=== PATIENT | female | born 1930 | race Two or more races ===

== ENCOUNTER 2016-06-18 20:38 | Inpatient (IN) | payer MEDICARE, OTHER ==
[~2016-06-18] VITALS: Ht 160 cm; Wt 76.5 kg
[~2016-06-18 20:38] MED LIST: AMYL1CAP58 PO; ASPI-991 PO; ATOR10TA PO; DONE10TA44 PO; LACT10SO PO; LEVO50TA PO; LOSA1TAB36 PO; MELO-270 PO; MEMA10TA21 PO; POTA10TA15 PO; QUET25TA PO; SENN8.6T6 PO; SOLI5TAB PO; TRAM50TA2 PO
[2016-06-18 21:11] LABS: BASOPHILS % (AUTO) 0.9 % (0.0-2.0); DIFF TOTAL % 100 %; HEMATOCRIT 39 % (33-45); HEMOGLOBIN 12.8 g/dL (11.5-14.8); LYMPHOCYTES # (AUTO) 1.4 /CMM (0.8-4.8); LYMPHOCYTES % (AUTO) 30.8 % (20.0-44.0); MEAN CORPUSCULAR HEMOGLOBIN 32 PG (26.0-33.0); MEAN CORPUSCULAR HGB CONC 33 g/dl (31.0-36.0); MEAN CORPUSCULAR VOLUME 97 fL (82-100); MONOCYTES # (AUTO) 0.4 /CMM (0.1-1.30); MONOCYTES % (AUTO) 8.4 % (2.0-12.0); NEUTROPHILS # (AUTO) 2.7 /CMM (1.8-8.9); NEUTROPHILS % (AUTO) 58.9 % (43.0-81.0); PLATELET COUNT (AUTO) 211 /CMM (150-450); RED BLOOD CELL COUNT(AUTO) 3.99 MIL/uL (4.0-5.2); WHITE BLOOD COUNT (AUTO) 4.5 K/uL (4.3-11.0)
[2016-06-18 21:20] LABS: POTASSIUM 4.2 mmol/L (3.5-5.1)
[2016-06-18 21:25] LABS: INR 0.94 (0.87-1.13); PROTHROMBIN TIME 9.9 SECS (9.5-12.7)
[2016-06-18 21:26] LABS: CALCIUM, SERUM 8.5 mg/dL (8.5-10.1)
[2016-06-18 21:29] LABS: TROPONIN I 0.267 ng/mL (0.00-0.056)
[2016-06-18 22:24] LABS: KETONES,URINE NEGATIVE (NEGATIVE); LEUKOCYTE ESTERASE ,URINE NEGATIVE (NEGATIVE)
[2016-06-18 22:32] LABS: ADD UA MICROSCOPIC YES
[2016-06-18 22:34] LABS: ADD URINE CULTURE NO; RBC,URINE 0-2 /HPF (0-2)
[2016-06-18] MEDS ORDERED: IV NS 0.9% 1,000 ML IV PRN (22:37)
[2016-06-18 22:40] VITALS: BP 141/92
[2016-06-18 22:50] VITALS: BP 141/92
[2016-06-18] MEDS ORDERED: LORAZEPAM INJ 2 MG/ML VIAL IV PRN (23:00)
[2016-06-18] MEDS ORDERED: MAGNESIUM HYDROXIDE 30 ML UDC PO PRN (23:00)
[2016-06-18] MEDS ORDERED: ONDANSETRON HCL/PF 4 MG/2 ML VIAL IVP PRN (23:00)
[2016-06-18] MEDS ORDERED: MAG HYDROX/AL HYDROX/SIMETH 30 ML UDC PO PRN (23:00)
[2016-06-18] MEDS ORDERED: ACETAMINOPHEN 325 MG TABLET PO PRN (23:00)
[2016-06-18] MEDS ORDERED: IV NS 0.9% 1,000 ML ONE (23:15)
[2016-06-18] MEDS ORDERED: IV SET PRIMARY PUMP SET 1 EA INFUS.SET MC ONE ×2 (23:27→23:33)
[2016-06-19] VITALS: BP 153/92
[2016-06-19 04:00] VITALS: BP 142/76
[2016-06-19 07:29] LABS: BASOPHILS % (AUTO) 0.3 % (0.0-2.0); DIFF TOTAL % 100 %; EOSINOPHILS % (AUTO) 0.5 % (0.0-6.0); HEMATOCRIT 38 % (33-45); HEMOGLOBIN 12.8 g/dL (11.5-14.8); LYMPHOCYTES # (AUTO) 1.5 /CMM (0.8-4.8); MEAN CORPUSCULAR HEMOGLOBIN 33 PG (26.0-33.0); MEAN CORPUSCULAR HGB CONC 34 g/dl (31.0-36.0); MEAN CORPUSCULAR VOLUME 97 fL (82-100); MONOCYTES # (AUTO) 0.4 /CMM (0.1-1.30); MONOCYTES % (AUTO) 6.7 % (2.0-12.0); NEUTROPHILS # (AUTO) 3.8 /CMM (1.8-8.9); NEUTROPHILS % (AUTO) 66.5 % (43.0-81.0); PLATELET COUNT (AUTO) 204 /CMM (150-450); RED BLOOD CELL COUNT(AUTO) 3.91 MIL/uL (4.0-5.2); WHITE BLOOD COUNT (AUTO) 5.7 K/uL (4.3-11.0)
[2016-06-19 08:00] VITALS: BP 157/78
[2016-06-19 08:01] LABS: CALCIUM, SERUM 9.2 mg/dL (8.5-10.1); CREATININE 0.8 mg/dL (0.6-1.3); PHOSPHORUS 2.9 mg/dL (2.5-4.9); POTASSIUM 3.7 mmol/L (3.5-5.1)
[2016-06-19] MEDS: PANTOPRAZOLE 40 MG TABLET.DR PO SCH (08:44)
[2016-06-19] MEDS: ENOXAPARIN SODIUM 40 MG/0.4 ML DISP.SYRIN SQ SCH (08:49)
[2016-06-19] MEDS ORDERED: ASPIRIN 325 MG TABLET PO SCH (09:00)
[2016-06-19] MEDS ORDERED: Z GUARD REMEDY 2 OZ OINT TP PRN (09:30)
[2016-06-19 12:00] VITALS: BP 138/72
[2016-06-19] MEDS: Z GUARD REMEDY 2 OZ OINT TP SCH ×2 (13:57→17:30)
[2016-06-19 21:50] VITALS: BP 160/64
[2016-06-19] MEDS ORDERED: QUETIAPINE FUMARATE 25 MG TABLET PO SCH (22:00)
[2016-06-19] MEDS ORDERED: SENNOSIDES 8.6 MG TABLET PO SCH (22:00)
[2016-06-20 04:52] LABS: CALCIUM, SERUM 8.7 mg/dL (8.5-10.1); CREATININE 0.8 mg/dL (0.6-1.3); PHOSPHORUS 3.3 mg/dL (2.5-4.9); POTASSIUM 3.7 mmol/L (3.5-5.1)
[2016-06-20] MEDS ORDERED: LEVOTHYROXINE SODIUM 50 MCG TABLET PO SCH (07:30)
[2016-06-20 08:00] VITALS: BP 142/81
[2016-06-20 08:42] VITALS: BP 142/81
[2016-06-20] MEDS: PANTOPRAZOLE 40 MG TABLET.DR PO SCH (08:46)
[2016-06-20] MEDS: ENOXAPARIN SODIUM 40 MG/0.4 ML DISP.SYRIN SQ SCH (08:55)
[2016-06-20] MEDS ORDERED: POTASSIUM CHLORIDE 10 MEQ TABLET.SA PO SCH (09:00)
[2016-06-20] MEDS ORDERED: MELOXICAM 7.5 MG TABLET PO SCH (09:00)
[2016-06-20] MEDS ORDERED: TRAMADOL HCL 50 MG TABLET PO SCH (09:00)
[2016-06-20] MEDS ORDERED: ASPIRIN 81 MG TAB.CHEW PO SCH (09:00)
[2016-06-20] MEDS ORDERED: LOSARTAN/HCTZ 50-12.5MG/ 1 EA TABLET PO SCH (09:00)
[2016-06-20] MEDS: Z GUARD REMEDY 2 OZ OINT TP SCH (14:18)
[2016-06-20] MEDS ORDERED: QUETIAPINE FUMARATE 25 MG TABLET PO SCH (15:00)
== END 2016-06-20 16:05 | disposition home health service (06) | DRG 73 ==
LOC: ER 20:40 → TELE 21:54 → MED 06-19 16:21
PROVIDERS: ADMIT Nurse Practitioner Acute Care; ATTEND Nurse Practitioner Acute Care
DX: G90.8 Other disorders of autonomic nervous system (principal); I21.4 Non-ST elevation (NSTEMI) myocardial infarction; F02.80 Dementia in other diseases classified elsewhere, unspecified severity, without behavioral disturbance, psychotic disturbance, mood disturbance, and anxiety; G30.9 Alzheimer's disease, unspecified; E03.9 Hypothyroidism, unspecified; E78.5 Hyperlipidemia, unspecified; Z87.440 Personal history of urinary (tract) infections; I11.9 Hypertensive heart disease without heart failure; F29 Unspecified psychosis not due to a substance or known physiological condition; Z96.652 Presence of left artificial knee joint; Z96.642 Presence of left artificial hip joint
CPT/HCPCS: 36415; 70450-TC; 71010-TC; 76856-TC; 80048-TC; 80061-TC; 81000-TC; 82962-TC; 83735-TC; 84100-TC; 84443-TC; 84484-TC; 85025-TC; 85730-TC; 87081-TC; 97001-TC; A4606; J1650; J7030; Z7610

== ENCOUNTER 2016-07-01 12:38 | Outpatient (CLI) | payer MEDICARE, OTHER ==
[~2016-07-01] VITALS: Ht 148.6 cm; Wt 64.0 kg
[~2016-07-01 12:38] MED LIST changes: -ATOR10TA PO
[2016-07-01 13:16] VITALS: BP_SYST 133; BP_SYST 152; BP_DIAS 75; BP_DIAS 87
== END 2016-07-01 23:59 | disposition home or self-care (01) ==
LOC: CSC 12:38
PROVIDERS: ATTEND Internal Medicine
DX: G30.9 Alzheimer's disease, unspecified (principal); F02.80 Dementia in other diseases classified elsewhere, unspecified severity, without behavioral disturbance, psychotic disturbance, mood disturbance, and anxiety; M81.0 Age-related osteoporosis without current pathological fracture; Z87.310 Personal history of (healed) osteoporosis fracture; E78.5 Hyperlipidemia, unspecified; K59.00 Constipation, unspecified; M13.862 Other specified arthritis, left knee; M13.861 Other specified arthritis, right knee; I95.1 Orthostatic hypotension; Z79.1 Long term (current) use of non-steroidal anti-inflammatories (NSAID); I10 Essential (primary) hypertension; Z82.49 Family history of ischemic heart disease and other diseases of the circulatory system; E03.9 Hypothyroidism, unspecified; Z96.642 Presence of left artificial hip joint; Z96.652 Presence of left artificial knee joint; Z91.81 History of falling; F32.5 Major depressive disorder, single episode, in full remission
CPT/HCPCS: G0463

== ENCOUNTER 2017-12-07 19:19 | Inpatient (IN) | payer MEDICARE, OTHER ==
[~2017-12-07] VITALS: Ht 165.1 cm; Wt 68.0 kg
[~2017-12-07 19:19] MED LIST changes: +ASPI-1152 PO; -ASPI-991 PO; +MELO-105 PO; -MELO-270 PO; +SENN-167 PO; -SENN8.6T6 PO; -SOLI5TAB PO; +SOLI5TAB2 PO
--- NOTE | 2017-12-07 19:19 | NUR ---
"MORE ALTERED THAN USUAL [id number]; FSBS 180G/DL" VSS NO ACUTE DISTRESS AT THIS TIME. PT RESPONDS TO PAIN BUT OTHERWISE CONFUSED D/T HX OF DEMENTIA. WILL CONTINUE TO MONITOR FOR ANY CHANGES DURING THE SHIFT.
--- NOTE | 2017-12-07 19:20 | NUR ---
ER MD MARMOLEJO AT BEDSIDE FOR EVAL
[2017-12-07] MEDS ORDERED: IV NS 0.9% 1,000 ML BAG IV ONE (19:30)
[2017-12-07 19:57] LABS: BASOPHILS % (AUTO) 0.7 % (0.0-2.0); EOSINOPHILS % (AUTO) 0.7 % (0.0-6.0); HEMATOCRIT 42 % (33-45); HEMOGLOBIN 13.9 g/dL (11.5-14.8); LYMPHOCYTES # (AUTO) 1.6 /CMM (0.8-4.8); LYMPHOCYTES % (AUTO) 25.7 % (20.0-44.0); MEAN CORPUSCULAR HEMOGLOBIN 32 PG (26.0-33.0); MEAN CORPUSCULAR HGB CONC 33 g/dl (31.0-36.0); MEAN CORPUSCULAR VOLUME 96 fL (82-100); MONOCYTES # (AUTO) 0.4 /CMM (0.1-1.30); MONOCYTES % (AUTO) 6.9 % (2.0-12.0); NEUTROPHILS # (AUTO) 4.3 /CMM (1.8-8.9); PLATELET COUNT (AUTO) 219 /CMM (150-450); RDW COEFFICIENT OF VARIATION 13.6 (11.5-15.0); RED BLOOD CELL COUNT(AUTO) 4.41 MIL/uL (4.0-5.2); WHITE BLOOD COUNT (AUTO) 6.3 K/uL (4.3-11.0)
[2017-12-07 20:11] LABS: CALCIUM, SERUM 8.7 mg/dL (8.5-10.1); CARBON DIOXIDE 23 mmol/L (21-32); CHLORIDE 107 mmol/L (98-107); CREATININE 1.2 mg/dL (0.6-1.3); GLUCOSE 122 mg/dL (74-106); POTASSIUM 4.2 mmol/L (3.5-5.1); SODIUM SERUM 138 mmol/L (136-145); UREA NITROGEN, BLOOD 14 mg/dL (7-18)
[2017-12-07 20:14] LABS: INR 0.89 (0.85-1.15)
[2017-12-07 20:16] LABS: ALANINE AMINOTRANSFERASE 18 U/L (12-78); ALBUMIN 3.3 g/dL (3.4-5.0); ALKALINE PHOSPHATASE 99 U/L (46-116); ASPARTATE AMINOTRANSFERASE 16 U/L (15-37); BILIRUBIN,DIRECT 0.1 mg/dL (0.0-0.2); BILIRUBIN,TOTAL 0.3 mg/dL (0.2-1.0); TOTAL PROTEIN, SERUM 6.8 g/dL (6.4-8.2)
[2017-12-07 20:19] LABS: TROPONIN I 0.059 ng/mL (0.00-0.056)
--- NOTE | 2017-12-07 20:42 | NUR ---
PT OFF TO CT
--- NOTE | 2017-12-07 20:46 | NUR ---
REPORT GIVEN TO CAN
[2017-12-07] MEDS ORDERED: ASPIRIN 325 MG TABLET PO ONE (21:00)
[2017-12-07] MEDS ORDERED: ASPIRIN 325 MG TABLET ONE (21:02)
[2017-12-07 22:00] VITALS: BP 132/74
--- NOTE | 2017-12-07 22:00 | NUR ---
HOME ORGANIZER ADMISSION NOTES, RECEIVED PATIENT VIA STRETCHER ACCOMPANIED BY 2STAFF, IN STABLE CONDITION AT THIS TIME, BREATHING EVEN AND UNLABORED, NO S/S OF SOB/ACUTE DISTRESS NOTED AT THIS TIME, SR IN THE TELE MONITOR HE IN THE 60'S. UNDER THE MEDICAL CARE OF NATE DICK NP. ADMITTING DX SYNCOPE, HE WANT PATIENT IN TELE ACUITY, H/O ADVANCE DEMENTIA, HYPOTHYROIDISM, HTN, GERD, BIPOLAR DO, DEPRESSION, ANXIETY, H/O LEFT KNEE AND LEFT HIP REPLACEMENT, CHRONIC CONSTIPATION. BED BATH PROVIDED UPON ADMISSION, AFEBRILE AT THIS TIME, NOTED WITH SACRAL REDNESS AND PERINEAL AND BILATERAL INNER THIGHS REDNESS TOO, LEFT FOOT REDNESS, NO IV UPON ADMISSION, PATIENT PULLED OUT INT HE WAY FROM ER TO [place] DEPARTMENT, PATIENT NOTED AGITATED AND COMBATIVE, REDIRECTION OF BEHAVIOR PROVIDED, FAMILY UPON ADMISSION AT BEDSIDE, WILL CONTINUE TO MONITOR, BED LOCKED AND IN LOW POSITION, BED ALARM ON, CLOSELY. VS 132/74, 94%RA, HR 86, 97.9, 0/10.
[2017-12-07] MEDS ORDERED: ENAL5TAB77 PO (22:49)
[2017-12-07] MEDS ORDERED: HYDROCODONE/APAP 5/325MG 1 EACH TABLET PO PRN (23:00)
[2017-12-07] MEDS ORDERED: ONDANSETRON HCL/PF 4 MG/2 ML VIAL IVP PRN (23:00)
[2017-12-07] MEDS ORDERED: MAGNESIUM HYDROXIDE 30 ML UDC PO PRN (23:00)
[2017-12-07] MEDS ORDERED: MAG HYDROX/AL HYDROX/SIMETH 30 ML UDC PO PRN (23:00)
[2017-12-07] MEDS ORDERED: ACETAMINOPHEN 325 MG TABLET PO PRN (23:00)
[2017-12-07] MEDS ORDERED: Z GUARD REMEDY 2 OZ OINT TP PRN (23:00)
[2017-12-08] VITALS (7 sets, daily range): BP systolic 134–153; BP diastolic 61–81
--- NOTE | 2017-12-08 06:23 | NUR ---
CLEANER AND DYER CLOSING NOTES, PATIENT SLEEPING IN BED AT THIS TIME, BUT EASILY AROUSABLE TO VERBAL AND TACTILE STIMULI , BREATHING EVEN AND UNLABORED, NO S/S OF SOB/ACUTE DISTRESS NOTED AT THIS TIME, NSR IN THE TELE MONITOR HE IN THE 60'S. IV IN LEFT HAND INTACT AND PATENT, BED LOCKED AND IN LOWEST POSITION, BED ALARM ON, CALL LIGHT W/I REACH, NO SIGNIFICANT CHANGE IN CONDITION DURING THE NIGH, DRY AND CLEAN AND WELL REPOSITIONED, WILL CONTINUE ENDORSE CONTINUITY OF CARE TO ONCOMING NURSE.
[2017-12-08 06:27] LABS: BASOPHILS % (AUTO) 0.2 % (0.0-2.0); EOSINOPHILS % (AUTO) 0.9 % (0.0-6.0); HEMATOCRIT 39 % (33-45); LYMPHOCYTES # (AUTO) 1.6 /CMM (0.8-4.8); LYMPHOCYTES % (AUTO) 22.5 % (20.0-44.0); MEAN CORPUSCULAR HEMOGLOBIN 33 PG (26.0-33.0); MEAN CORPUSCULAR HGB CONC 33 g/dl (31.0-36.0); MEAN CORPUSCULAR VOLUME 100 fL (82-100); MONOCYTES # (AUTO) 0.5 /CMM (0.1-1.30); MONOCYTES % (AUTO) 7.4 % (2.0-12.0); PLATELET COUNT (AUTO) 191 /CMM (150-450); RDW COEFFICIENT OF VARIATION 14.4 (11.5-15.0); RED BLOOD CELL COUNT(AUTO) 3.96 MIL/uL (4.0-5.2); WHITE BLOOD COUNT (AUTO) 7.2 K/uL (4.3-11.0)
[2017-12-08 06:45] LABS: CHOLESTEROL 252 mg/dL (<200); HDL CHOLESTEROL 82 mg/dL (40-60); LDL 147 mg/dL (0-99); THYROID STIMULATING HORMONE 2.511 uIU/mL (0.358-3.74); TRIGLYCERIDES 69 mg/dL (30-150)
[2017-12-08 06:53] LABS: CARBON DIOXIDE 27 mmol/L (21-32); CHLORIDE 108 mmol/L (98-107); GLUCOSE 95 mg/dL (74-106); PHOSPHORUS 3.3 mg/dL (2.5-4.9); POTASSIUM 4.3 mmol/L (3.5-5.1); SODIUM SERUM 144 mmol/L (136-145); UREA NITROGEN, BLOOD 11 mg/dL (7-18)
[2017-12-08 06:58] LABS: CALCIUM, SERUM 8.6 mg/dL (8.5-10.1)
--- NOTE | 2017-12-08 07:40 | NUR ---
RN NOTE RECEIVED PATIENT AWAKE ALERT AND ORIENTED X1-2, PATIENT IS ABLE TO UNDERSTAND IN HER [place] LANGUAGE. BREATHING EVEN AND UNLABORED WITH NO DISTRESS NOTED. ON CONTINUOUS O2 OF 2L SATURATING WELL. ON TIRE CARE MANAGER SINUS ARLEN HR OF 55. BILATERAL RESTRAINTS ON PATIENT WILL BE REMOVED Q2H TO RECHECK SKIN AND CIRCULATION. LEFT FA IV SITE INTACT AND PATENT. ALL SAFETY MEASURES DONE. BED LOW AND LOCKED POSITION. WILL CONTINUE TO MONITOR.
--- NOTE | 2017-12-08 11:15 | NUR ---
WOUND CARE CONSULT: PATIENT SEEN AND SKIN INTEGRITY ASSESSMENT DONE. PLEASE SEE PCS FOR TODAY. RECOMMEND CONTINUE USE OF Z GUARD TO SKIN FOLD, ABDOMINAL AREA, PERINEAL AND BUTTOCKS. JAISON OF 15, CONTINUE ALL PRESSURE ULCER PREVENTION MEASURES PER PLAN OF CARE. WILL SEE PRN. Addendum: 12/08/17 at 1119 by RYLIE HERNANDEZ RN Amended: Links added.
--- NOTE | 2017-12-08 18:50 | NUR ---
RN NOTE CAREGIVER AT BEDSIDE WITH PATIENT.
--- NOTE | 2017-12-08 19:20 | NUR ---
RN NOTE PATIENT REMAINED STABLE THROUGHOUT SHIFT WITH NO ACUTE CHANGES OR DISTRESS NOTED. WILL ENDORSE TO NEXT SHIFT TO CONTINUE CONTINUITY OF CARE.
[2017-12-08 19:43] LABS: BILIRUBIN,URINE NEGATIVE (NEGATIVE); BLOOD, URINE TRACE-INTA Ery/uL (NEGATIVE); COLOR,URINE YELLOW (YELLOW); KETONES,URINE NEGATIVE (NEGATIVE); LEUKOCYTE ESTERASE ,URINE 3+ (NEGATIVE); NITRITE, URINE POSITIVE (NEGATIVE); PH,URINE 6.5 (5.0-8.0); PROTEIN,URINE NEGATIVE (NEGATIVE); UGLUCOSE NEGATIVE (NEGATIVE); UROBILINOGEN,URINE 0.2 EU/dL (0.2)
--- NOTE | 2017-12-08 19:51 | NUR ---
Patient speaks [place] Citizen only.Spoke with son Jan who is currently out of the country. Son stated, patient lives at home with 24hr caregiver and SS. She is totally dependent with adl's, non ambulatory.She has a wheelchair for mobility, currently on service with [facility] [phone]. Current plan is to dc patient back home. Caregiver will provide ride. Addendum: 12/08/17 at 1950 by KAYODE BEE RN Amended: Links added.
[2017-12-08 20:36] LABS: APPEARANCE,URINE SLIGHTLY CLOUDY (CLEAR)
[2017-12-08 20:42] LABS: BACTERIA,URINE Many /HPF (None Seen); RBC,URINE 0-2 /HPF (0-2); SQUAMOUS EPITHELIAL CELL,UR Few /HPF (None Seen); WBC,URINE 25-30 /HPF (0-3)
[2017-12-08] MEDS: SENNOSIDES 8.6 MG TABLET PO SCH (22:33)
[2017-12-09] VITALS: BP 168/68
--- NOTE | 2017-12-09 03:15 | NUR ---
0315 RESTRAINTS RENEWAL ORDER OBTAINED FROM DEVAN AGUIAR. ORDER NOTED AND CARRIED OUT.
[2017-12-09 04:00] VITALS: BP_SYST 123; BP_SYST 166; BP_DIAS 52; BP_DIAS 87
--- NOTE | 2017-12-09 07:40 | NUR ---
RN NOTE RECEIVED PATIENT AWAKE ALERT AND ORIENTED X1-2, PATIENT IS ABLE TO UNDERSTAND IN HER [place] LANGUAGE (VINCENTIAN) WITH EPISODES OF CONFUSION. BREATHING EVEN AND UNLABORED WITH NO DISTRESS NOTED. ON CONTINUOUS O2 OF 2L SATURATING WELL. ON DIRECTOR OF PURCHASING SINUS RHYTHM HR OF 86. BILATERAL RESTRAINTS ON PATIENT WILL BE REMOVED Q2H TO RECHECK SKIN AND CIRCULATION. LEFT FA IV SITE INTACT AND PATENT. ALL SAFETY MEASURES DONE. BED LOW AND LOCKED POSITION. WILL CONTINUE TO MONITOR.
[2017-12-09 08:00] VITALS: BP 151/88
[2017-12-09 16:00] VITALS: BP_SYST 155; BP_SYST 158; BP_DIAS 70; BP_DIAS 73
--- NOTE | 2017-12-09 19:01 | NUR ---
RN NOTE PATIENT REMAINED STABLE THROUGHOUT SHIFT WITH NO ACUTE CHANGES OR DISTRESS NOTED. WILL ENDORSE TO NEXT SHIFT TO CONTINUE TO MONITOR FOR CONTINUITY OF CARE.
[2017-12-09 20:00] VITALS: BP 152/81
[2017-12-09] MEDS: SENNOSIDES 8.6 MG TABLET PO SCH (21:02)
[2017-12-10 04:00] VITALS: BP 149/87
--- NOTE | 2017-12-10 04:30 | NUR ---
RN NOTE NOTIFIED COSME WHYTE NP THAT MED RECON WAS NOT REVIEWED, AWAITING FOR COSME WHYTE NP TO FOLLOW UP ON MED RECON
[2017-12-10 06:25] LABS: BASOPHILS % (AUTO) 0.3 % (0.0-2.0); EOSINOPHILS % (AUTO) 0.8 % (0.0-6.0); HEMATOCRIT 40 % (33-45); HEMOGLOBIN 13.3 g/dL (11.5-14.8); LYMPHOCYTES # (AUTO) 1.4 /CMM (0.8-4.8); LYMPHOCYTES % (AUTO) 22.2 % (20.0-44.0); MEAN CORPUSCULAR HEMOGLOBIN 33 PG (26.0-33.0); MEAN CORPUSCULAR HGB CONC 33 g/dl (31.0-36.0); MEAN CORPUSCULAR VOLUME 99 fL (82-100); MONOCYTES # (AUTO) 0.5 /CMM (0.1-1.30); MONOCYTES % (AUTO) 7.8 % (2.0-12.0); NEUTROPHILS # (AUTO) 4.5 /CMM (1.8-8.9); NEUTROPHILS % (AUTO) 68.9 % (43.0-81.0); PLATELET COUNT (AUTO) 201 /CMM (150-450); RED BLOOD CELL COUNT(AUTO) 4.06 MIL/uL (4.0-5.2); WHITE BLOOD COUNT (AUTO) 6.5 K/uL (4.3-11.0)
[2017-12-10 06:37] VITALS: BP 149/87
--- NOTE | 2017-12-10 06:39 | NUR ---
RN NOTE PATIENT RESTED WELL AT NIGHT, NO PAIN OR DISCOMFORT NOTED, ALL SAFETY MEASURES TAKEN, PATIENT IS STABLE, WILL ENDORSE TO AM SHIFT FOR CONTINUATION OF CARE
[2017-12-10 07:05] LABS: CALCIUM, SERUM 8.8 mg/dL (8.5-10.1); CARBON DIOXIDE 25 mmol/L (21-32); CHLORIDE 106 mmol/L (98-107); CREATININE 0.9 mg/dL (0.6-1.3); GLUCOSE 93 mg/dL (74-106); POTASSIUM 3.7 mmol/L (3.5-5.1); SODIUM SERUM 142 mmol/L (136-145); UREA NITROGEN, BLOOD 10 mg/dL (7-18)
--- NOTE | 2017-12-10 07:40 | NUR ---
RN NOTE RECEIVED PATIENT AWAKE ALERT AND ORIENTED X1, PATIENT IS ABLE TO UNDERSTAND IN HER [place] LANGUAGE ([place]IAN) WITH EPISODES OF CONFUSION. BREATHING EVEN AND UNLABORED WITH NO DISTRESS NOTED. BILATERAL RESTRAINTS ON PATIENT WILL BE REMOVED Q2H TO RECHECK SKIN AND CIRCULATION. LEFT FA IV SITE INTACT AND PATENT. ALL SAFETY MEASURES DONE. BED LOW AND LOCKED POSITION. WILL CONTINUE TO MONITOR.
[2017-12-10 08:00] VITALS: BP 148/78
[2017-12-10] MEDS ORDERED: LOSA50TA21 PO (13:08)
[2017-12-10] MEDS ORDERED: LEVO500T75 PO (13:12)
[2017-12-10 16:01] VITALS: BP 144/70
--- NOTE | 2017-12-10 17:20 | NUR ---
RN NOTE 87 YEAR OLD FEMALE DISCHARGED TO HOME IN STABLE CONDITION. COMPLIANT WITH MEDICATIONS, COOPERATIVE WITH TREATMENT PLANS. MEDICAL TREATMENT PLANS DEFERRED FOR CONTINUAL MONITORING, EDUCATED CAREGIVER AND SON AGUILAR ABOUT AFTER CARE PLAN AND COPIES PROVIDED. RETURNED PERSONAL BELONGINGS TO PATIENT. MEDICATIONS RECONCILED. PATIENT UNABLE TO SIGN DISCHARGE PAPERWORK BUT WAS ABLE TO GET A SECONDARY RN. WOUND PICTURES TAKEN AND DOCUMENTED IN CHART. PATIENT LEFT THE UNIT AT 1720 VIA AMBULANCE.
== END 2017-12-10 17:30 | disposition home health service (06) | DRG 73 ==
LOC: ER 19:23 → TELE1 20:32 → MEDSG1 12-09 10:02
PROVIDERS: ADMIT Nurse Practitioner Acute Care; ATTEND Nurse Practitioner Acute Care
DX: G90.8 Other disorders of autonomic nervous system (principal); I21.A1 Myocardial infarction type 2; G93.40 Encephalopathy, unspecified; E44.1 Mild protein-calorie malnutrition; N39.0 Urinary tract infection, site not specified; E03.9 Hypothyroidism, unspecified; E78.5 Hyperlipidemia, unspecified; G30.9 Alzheimer's disease, unspecified; F02.80 Dementia in other diseases classified elsewhere, unspecified severity, without behavioral disturbance, psychotic disturbance, mood disturbance, and anxiety; I25.10 Atherosclerotic heart disease of native coronary artery without angina pectoris; K21.9 Gastro-esophageal reflux disease without esophagitis; Z96.652 Presence of left artificial knee joint; Z96.642 Presence of left artificial hip joint; J44.9 Chronic obstructive pulmonary disease, unspecified; K59.09 Other constipation; E88.09 Other disorders of plasma-protein metabolism, not elsewhere classified; Z68.25 Body mass index [BMI] 25.0-25.9, adult; E86.0 Dehydration; B96.1 Klebsiella pneumoniae [K. pneumoniae] as the cause of diseases classified elsewhere; I10 Essential (primary) hypertension
CPT/HCPCS: 36415; 70450-TC; 71045-TC; 80048-TC; 80061-TC; 80076-TC; 81000-TC; 83605-TC; 83735-TC; 84100-TC; 84443-TC; 84484-TC; 85025-TC; 85730-TC; 87040-TC; 87081-TC; 87086-TC; 87186-TC; A4606; J7030; Z7610

== ENCOUNTER 2021-12-12 00:18 | Inpatient (IN) | payer MEDICARE, OTHER ==
[~2021-12-12] VITALS: Ht 165.1 cm; Wt 79.4 kg
[~2021-12-12 00:18] MED LIST changes: -ASPI-1152 PO; +ASPI-1420 PO; +ENAL5TAB77 PO; -LACT10SO PO; +LACT10SO3 PO; +LEVO500T23 PO; -LOSA1TAB36 PO; +LOSA50TA39 PO; -MEMA10TA21 PO; +MEMA10TA56 PO; -SENN-167 PO; +SENN-261 PO
[2021-12-12] MEDS ORDERED: VANCOMYCIN 1 GM VIAL ONE (00:27)
[2021-12-12] MEDS ORDERED: PIPERACILLIN /TAZOBACTAM 3.375 G in IV D5W 50 ML IV ONE (00:30)
[2021-12-12] MEDS ORDERED: VANCOMYCIN 1 GM in IV D5W 250 ML IV ONE (00:30)
[2021-12-12] MEDS ORDERED: FUROSEMIDE 20 MG/2 ML VIAL IV ONE (00:30)
[2021-12-12] MEDS ORDERED: PIPERACILLIN /TAZOBACTAM 3.375 G VIAL IV ONE (00:33)
[2021-12-12] MEDS ORDERED: FUROSEMIDE 20 MG/2 ML VIAL ONE (00:33)
[2021-12-12] MEDS ORDERED: ACETAMINOPHEN 650 MG/SUPP.RECT RC ONE ×2 (00:41→01:00)
--- NOTE | 2021-12-12 00:42 | NUR ---
TO ER BED 8. [id number] FROM HOME FOR LOW O2 SAT 77% ON 3LPM. 92% ON 15LPM NON REBREATHER. PT AAOX0. BREATHING TACHYPNEIC UPON ARRIVAL. CONNECTED TO MONITOR. MD AND RT AT BEDSIDE.
[2021-12-12 00:45] LABS: BASOPHILS % (AUTO) 0.3 % (0.0-2.0); EOSINOPHILS % (AUTO) 0.4 % (0.0-6.0); HEMATOCRIT 34 % (33-45); HEMOGLOBIN 11.4 g/dL (11.5-14.8); LYMPHOCYTES % (AUTO) 21.7 % (20.0-44.0); MEAN CORPUSCULAR HGB CONC 34 g/dl (31.0-36.0); MEAN CORPUSCULAR VOLUME 95 fL (82-100); MONOCYTES # (AUTO) 0.5 K/uL (0.1-1.30); MONOCYTES % (AUTO) 9.8 % (2.0-12.0); NEUTROPHILS # (AUTO) 3.2 K/uL (1.8-8.9); NEUTROPHILS % (AUTO) 67.8 % (43.0-81.0); PLATELET COUNT (AUTO) 129 K/uL (150-450); RED BLOOD CELL COUNT(AUTO) 3.58 MIL/uL (4.0-5.2); WHITE BLOOD COUNT (AUTO) 4.8 K/uL (4.3-11.0)
--- NOTE | 2021-12-12 00:46 | NUR ---
URINE COLLECTED AND SENT TO LAB
--- NOTE | 2021-12-12 00:46 | NUR ---
BLOOD AND CULTURES OBTAINED AND SENT TO LAB
--- NOTE | 2021-12-12 00:51 | NUR ---
EMT AT BEDSIDE FOR EKG
--- NOTE | 2021-12-12 00:51 | NUR ---
RT AT BEDSIDE
--- NOTE | 2021-12-12 00:52 | NUR ---
COVID SWAB DONE AND SENT TO LAB
[2021-12-12 00:55] LABS: CALCIUM, SERUM 7.6 mg/dL (8.5-10.1); CARBON DIOXIDE 28 mmol/L (21-32); CHLORIDE 100 mmol/L (98-107); CREATININE 1.3 mg/dL (0.6-1.3); GLUCOSE 153 mg/dL (74-106); POTASSIUM 4.3 mmol/L (3.5-5.1); SODIUM SERUM 133 mmol/L (136-145); UREA NITROGEN, BLOOD 22 mg/dL (7-18)
--- NOTE | 2021-12-12 00:56 | NUR ---
STACI/IGOR (SON) [phone]
--- NOTE | 2021-12-12 00:57 | NUR ---
LARGE BOWEL MOVEMENT, CLEANED AND DRYED.
--- NOTE | 2021-12-12 00:57 | NUR ---
RT NOTE LATE ENTRY Pt rec'd on NRB mask via FD. Pt diaphoretic, Tachypneic, and showed abdominal breathing. pt placed on bipap per MD orders @ 0040 on noted settings. Abg taken at 0057 per md orders. Alarms are set and audbile. Ambu bag at bedside. Bipap plugged into red outlet. Addendum: 12/12/21 at 0137 by JUVENAL CAN RT Amended: Links added.
--- NOTE | 2021-12-12 01:06 | NUR ---
trop 68
[2021-12-12 01:09] LABS: ALANINE AMINOTRANSFERASE 22 U/L (12-78); ALBUMIN 2.8 g/dL (3.4-5.0); ALKALINE PHOSPHATASE 111 U/L (46-116); ASPARTATE AMINOTRANSFERASE 22 U/L (15-37); BILIRUBIN,DIRECT 0.1 mg/dL (0.0-0.2); BILIRUBIN,TOTAL 0.2 mg/dL (0.2-1.0); TOTAL PROTEIN, SERUM 6.6 g/dL (6.4-8.2)
[2021-12-12 01:17] LABS: BILIRUBIN,URINE NEGATIVE (NEGATIVE); COLOR,URINE YELLOW (YELLOW); LEUKOCYTE ESTERASE ,URINE MODERATE (NEGATIVE); NITRITE, URINE POSITIVE (NEGATIVE); PROTEIN,URINE 30 mg/dl (NEGATIVE); UGLUCOSE NEGATIVE (NEGATIVE); UROBILINOGEN,URINE 0.2 EU/dL (0.2)
[2021-12-12 01:27] LABS: ABG PCO2 36.9 mmHg (35.0-45.0); ABG PH 7.369 (7.350-7.450); COHb 0.3 % (0.5-1.5); MetHb 0.5 % (0.0-1.5); O2Hb 98.2 % (94.0-97.0); SITE, ABG Right Radial; VENT MODE, BG Bipap 15/5 80% RR 16
--- NOTE | 2021-12-12 01:47 | NUR ---
RT NOTE pt taken off bipap and placed on NRB 15LPM per MD orders Addendum: 12/12/21 at 0148 by JUVENAL CAN RT Amended: Links added.
[2021-12-12 02:16] LABS: BACTERIA,URINE Many /HPF (None Seen); SQUAMOUS EPITHELIAL CELL,UR Few /HPF (None Seen)
--- NOTE | 2021-12-12 02:40 | NUR ---
ON PHONE WITH SON
[2021-12-12] MEDS ORDERED: ONDANSETRON HCL/PF 4 MG/2 ML VIAL IVP PRN (03:30)
[2021-12-12] MEDS ORDERED: Z GUARD REMEDY 4 OZ OINT TP PRN (03:30)
[2021-12-12] MEDS ORDERED: MORPHINE SULFATE INJ 2 MG/ML DISP.SYRIN IV PRN (03:30)
[2021-12-12] MEDS ORDERED: ALBUTEROL FS 2.5 MG/0.5 ML VIAL.NEB NEB PRN (03:30)
[2021-12-12] MEDS ORDERED: ACETAMINOPHEN 325 MG TABLET PO PRN (03:30)
--- NOTE | 2021-12-12 04:05 | NUR ---
REPORT GIVEN TO MERYL ALONSO FOR ANITA
--- NOTE | 2021-12-12 06:01 | NUR ---
PATIENT BEING TRANSFFERED TO 104
--- NOTE | 2021-12-12 06:05 | NUR ---
BLOW MACHINE TENDER STARCH SPRAYING NOTE PT ARRIVED FROM ER VIA GURNEY. ALERT AWAKE X 0, SOB NOTED. PT ON 15L O2 VIA NRM O2 SAT 100%. ON TELE SR HR 67. F/C INTACT AND PATENT DRAINING YELLOWISH COLOR. SL IN RAC AND LT HAND INTACT AND PATENT. PT IS COVID POSITIVE, ISOLATION PRECAUTIONS TAKEN. WILL ENDORSE TO DAY SHIFT NURSE TO FOLLOW UP WITH ADMISSION PROCESS.
[2021-12-12 06:43] VITALS: BP 113/83
[2021-12-12 08:00] VITALS: BP 132/67
[2021-12-12] MEDS ORDERED: APIX5TAB PO (08:38)
[2021-12-12] MEDS ORDERED: BUSP5TAB3 PO (08:38)
[2021-12-12] MEDS ORDERED: LOSA25TA27 PO (08:38)
[2021-12-12] MEDS ORDERED: METO25TA20 PO (08:38)
[2021-12-12] MEDS ORDERED: FURO20TA4 PO (08:38)
[2021-12-12] MEDS ORDERED: LEVE500T20 PO (08:38)
[2021-12-12] MEDS ORDERED: ATOR10TA PO (08:38)
[2021-12-12] MEDS: DEXAMETHASONE SOD PHOSPHATE 10 MG/ML VIAL IV SCH (08:41)
[2021-12-12] MEDS: ENOXAPARIN SODIUM 80 MG/0.8 ML DISP.SYRIN SQ SCH (08:42)
[2021-12-12] MEDS: CEFTRIAXONE 1 G in IV D5W 50 ML IV SCH (08:42)
[2021-12-12] MEDS ORDERED: HEPARIN SODIUM, PORCINE 5000 UNITS/1 ML VIAL SQ SCH (09:00)
[2021-12-12 12:00] VITALS: BP 146/98
--- NOTE | 2021-12-12 14:57 | NUR ---
[place]/RN PT ARLEN HR 45-48. DO ESSENCE NOTIFIED. STAT EKG ORDERED.
[2021-12-12 16:00] VITALS: BP 139/70
--- NOTE | 2021-12-12 19:10 | NUR ---
RN NOTES RECEIVED REPORT FROM MORNING RN. PATIENT IN BED A/O X0. WITH OXYGEN INHALATION VIA REGULAR MASK AT 8LPM SATING 98%. NO SOB NO DISTRESS NOTED. ON TELE MONITOR WITH SINUS ARLEN.WITH IV ACCESS AT L HAND # 18, R AC #20 PATENT FLUSHES WELL. ALL SAFETY MEASURES IN PLACE AT ALL TIMES. HOB ELEVATED. CALL LIGHT WITHIN REACH. BED ON LOWEST POSITION AND LOCKED. ISOLATION PRECAUTION OBSERVED AT ALL TIMES. WILL CLOSELY MO NITOR THE PATIENT
--- NOTE | 2021-12-12 19:12 | NUR ---
[place]/RN STILL NO ORDER FROM DO LOWRY THROUGHOUT THE DAY. DO LOWRY TEXTED X2 AND CALLED ONCE, REMINDED OF NEW ADMITTED PT WITH NO ORDER FOR MEDICATION OR FLUID. ONLY DR. BOWMAN'S ORDER AVAILABLE AT THIS TIME.
[2021-12-12 20:00] VITALS: BP 127/72
[2021-12-12] MEDS: IPRATROPIUM/ALBUTEROL INHALER IH SCH ×2 (20:08→20:09)
[2021-12-12] MEDS ORDERED: DEXTROSE 50%-WATER 50 ML DISP.SYRIN IV PRN (20:30)
[2021-12-13] VITALS: BP 148/71
[2021-12-13] MEDS: BLOOD SUGAR DIAGNOSTIC 1 EACH STRIP IN SCH ×5 (00:07→23:18)
[2021-12-13] MEDS: IPRATROPIUM/ALBUTEROL INHALER IH SCH ×3 (03:18→15:29)
[2021-12-13 04:00] VITALS: BP 150/71
[2021-12-13 05:17] LABS: ABG BASE EXCESS -1.6 mmol/L; ABG OXYGEN SATURATION 96.7 % (92.0-98.5); ABG PCO2 38.8 mmHg (35.0-45.0); ABG PH 7.391 (7.350-7.450); ABG PO2 96.5 mmHg (75.0-100.0); AaDO2 230.8 mmHg; COHb 0.2 % (0.5-1.5); MetHb 0.3 % (0.0-1.5); O2Hb 96.2 % (94.0-97.0); SITE, ABG Right Radial; VENT MODE, BG SM
--- NOTE | 2021-12-13 05:18 | NUR ---
ABG DONE RN NOTIFIED.
--- NOTE | 2021-12-13 06:00 | NUR ---
RN NOTES ABG RELAYED TO DR COSME WITH NO NEW ORDER AT THIS TIME.
--- NOTE | 2021-12-13 06:41 | NUR ---
RN NOTES PATIENT REMAINS STABLE NO SIGNIFICANT CHANGES IN HEALTH CONDITION. STILL ON SIMPLE MASK AT 8LPM TOLERATING WELL SATING 96%. IV ACCESS INTACT FLUSHES WELL. ALL NEEDS ATTENDED. ISOLATION PRECAUTION RENDERED AT ALL TIMES. ALL SAFETY MEASURES IN PLACE AT ALL TIMES. HOB ELEVATED. CALL LIGHT WITHIN REACH. WILL ENDORSED TO MORNING SHIFT FOR ANITA
[2021-12-13 07:25] LABS: HEMATOCRIT 39 % (33-45); LYMPHOCYTES # (AUTO) 0.7 K/uL (0.8-4.8); LYMPHOCYTES % (AUTO) 6.1 % (20.0-44.0); MEAN CORPUSCULAR HGB CONC 33 g/dl (31.0-36.0); MEAN CORPUSCULAR VOLUME 94 fL (82-100); MONOCYTES # (AUTO) 0.3 K/uL (0.1-1.30); MONOCYTES % (AUTO) 2.4 % (2.0-12.0); NEUTROPHILS % (AUTO) 91.5 % (43.0-81.0); PLATELET COUNT (AUTO) 153 K/uL (150-450); RED BLOOD CELL COUNT(AUTO) 4.13 MIL/uL (4.0-5.2); WHITE BLOOD COUNT (AUTO) 10.9 K/uL (4.3-11.0)
--- NOTE | 2021-12-13 07:29 | NUR ---
RN NOTES PT RECEIVED ASLEEP. EASILY AROUSABLE. PATIENT IN BED A/O X0. WITH OXYGEN VIA NC AT 8LPM SATING 96%. NO SOB NO DISTRESS NOTED AT THIS TIME. SINUS ARLEN ON TELE MONITOR. WITH IV ACCESS AT L HAND #18, R AC #20, PATENT AND FLUSHING WELL. ALL SAFETY MEASURES IN PLACE. HOB ELEVATED. CALL LIGHT WITHIN REACH. BED ON LOWEST POSITION AND LOCKED. ISOLATION PRECAUTION OBSERVED AT ALL TIMES. WILL CONTINUE PLAN OF CARE.
[2021-12-13 08:00] VITALS: BP 120/73
[2021-12-13 08:12] LABS: BILIRUBIN,TOTAL 0.3 mg/dL (0.2-1.0); CREATININE 1.1 mg/dL (0.6-1.3); MAGNESIUM 2.4 mg/dL (1.8-2.4); PHOSPHORUS 3.5 mg/dL (2.5-4.9); POTASSIUM 4.5 mmol/L (3.5-5.1); TOTAL PROTEIN, SERUM 7.6 g/dL (6.4-8.2)
[2021-12-13] MEDS: ENOXAPARIN SODIUM 80 MG/0.8 ML DISP.SYRIN SQ SCH (08:32)
[2021-12-13] MEDS: DEXAMETHASONE SOD PHOSPHATE 10 MG/ML VIAL IV SCH (08:34)
[2021-12-13] MEDS: CEFTRIAXONE 1 G in IV D5W 50 ML IV SCH (08:34)
--- NOTE | 2021-12-13 09:38 | NUR ---
PT TROPONIN 64. CHARGE NURSE AND MD NOTIFIED. NO NEW ORDERS AT THE MOMENT.
[2021-12-13] MEDS: ASPIRIN EC 81 MG TABLET.DR PO SCH (09:47)
[2021-12-13] MEDS: LEVOTHYROXINE SODIUM 50 MCG TABLET PO SCH (09:47)
[2021-12-13] MEDS: METOPROLOL TARTRATE 25 MG TABLET PO SCH (09:48)
[2021-12-13] MEDS: LOSARTAN POTASSIUM 25 MG TABLET PO SCH (09:48)
--- NOTE | 2021-12-13 10:44 | NUR ---
PT HR IN THE MORNING IS 79. NOW AT LOW 50'S, A FEW HOURS AFTER TAKING METROPOLOL 25MG. MD NOTIFIED. NO NEW ORDERS.
--- NOTE | 2021-12-13 11:12 | NUR ---
td rn note per dr zachary child npo except meds ,patient able to swallow po meds while crushed them
[2021-12-13] MEDS: INSULIN REGULAR, HUMAN 100 UNIT/ML 3 ML VIAL SQ PRN (11:53)
[2021-12-13 12:00] VITALS: BP 151/91
--- NOTE | 2021-12-13 13:27 | NUR ---
PT TROPONIN 66. CHARGE NURSE AND MD NOTIFIED, NO NEW ORDERS AT THE MOMENT.
[2021-12-13 16:00] VITALS: BP 158/71
[2021-12-13] MEDS: APIXABAN 5 MG TABLET PO SCH (16:36)
--- NOTE | 2021-12-13 18:37 | NUR ---
RN CLOSING NOTES: PATIENT IN BED, AWAKE, ALERT X 0. NO RESPIRATORY DISTRESS NOTED AT THIS TIME. CONTINUES TO BE ON 8 L/MIN OF OXYGEN VIA FACIAL MASK. BREATHING EVEN AND UNLABORED. ON SB WITH HR OF 57. PATIENT REMAINS TO BE ON NPO EXCEPT MEDS. NO ASPIRATION NOTED THROUGHOUT SHIFT. IV ACCESS ON LEFT HAND # 18 AND RIGHT AC # 20, BOTH INTACT, FLUSHING WELL, NO S/S OF INFILTRATION. NOWAK CATHETER INTACT, DRAINING WELL WITH CLEAR YELLOW URINE, NO SEDIMENTATION AND NO HEMATURIA NOTED. HOB KEPT ELEVATED, BED LOCKED AND IN LOWEST POSITION. SR UP. TURNED AND REPOSITIONED EVERY [address] ME[address] PL[address], CALL LIGHT WITHIN REACH. WILL ENDORSE TO NEXT SHIFT NURSE FOR CONTINUITY OF CARE.
--- NOTE | 2021-12-13 19:50 | NUR ---
RN Note Received patient in bed, awake, non-verbal. Breathing even and unlabored. received on simple face mask at 8L/min. Saturation 100 percent. Patient switched to nasal cannula at 3L/min. Saturating 100 percent. No cough/congestion noted at this time. HOB elevated 30 degrees. skin warm and dry to touch. Left hand PIV 18G intact. no IVF infusing. Indwelling sousa catheter intact, draining by gravity. no bleeding at this time. Assisted with turning and repositioning, bed low, in locked position. call light within reach. Will continue to monitor.
[2021-12-13 20:00] VITALS: BP 146/88
--- NOTE | 2021-12-13 20:26 | NUR ---
RN Note Patient switched to Nasal cannula 3L/min via nasal cannula. Oxygen saturation of 100%. NO SOB NOTED. Previously on face mask at 8L/min, saturation of 100%. Attached patient to bedside SPO2 monitor.
[2021-12-13] MEDS: ATORVASTATIN 10 MG TABLET PO SCH (21:32)
[2021-12-14] VITALS: BP 139/85
[2021-12-14 04:00] VITALS: BP 139/74
[2021-12-14] MEDS: BLOOD SUGAR DIAGNOSTIC 1 EACH STRIP IN SCH ×4 (06:25→23:39)
[2021-12-14 07:55] LABS: HEMATOCRIT 37 % (33-45); HEMOGLOBIN 12.2 g/dL (11.5-14.8); LYMPHOCYTES # (AUTO) 0.9 K/uL (0.8-4.8); LYMPHOCYTES % (AUTO) 10.2 % (20.0-44.0); MEAN CORPUSCULAR HGB CONC 33 g/dl (31.0-36.0); MEAN CORPUSCULAR VOLUME 94 fL (82-100); MONOCYTES # (AUTO) 0.3 K/uL (0.1-1.30); MONOCYTES % (AUTO) 3.5 % (2.0-12.0); NEUTROPHILS # (AUTO) 7.3 K/uL (1.8-8.9); NEUTROPHILS % (AUTO) 86.3 % (43.0-81.0); PLATELET COUNT (AUTO) 161 K/uL (150-450); RED BLOOD CELL COUNT(AUTO) 3.88 MIL/uL (4.0-5.2); WHITE BLOOD COUNT (AUTO) 8.5 K/uL (4.3-11.0)
[2021-12-14 08:00] VITALS: BP 138/68
[2021-12-14] MEDS: LEVOTHYROXINE SODIUM 50 MCG TABLET PO SCH (08:03)
[2021-12-14 08:12] LABS: CALCIUM, SERUM 8.2 mg/dL (8.5-10.1); CREATININE 0.9 mg/dL (0.6-1.3); MAGNESIUM 2.6 mg/dL (1.8-2.4); PHOSPHORUS 3.2 mg/dL (2.5-4.9); POTASSIUM 4.3 mmol/L (3.5-5.1)
[2021-12-14] MEDS: DEXAMETHASONE SOD PHOSPHATE 10 MG/ML VIAL IV SCH (09:52)
[2021-12-14] MEDS: LOSARTAN POTASSIUM 25 MG TABLET PO SCH (09:53)
[2021-12-14] MEDS: ASPIRIN EC 81 MG TABLET.DR PO SCH (09:53)
[2021-12-14] MEDS: METOPROLOL TARTRATE 25 MG TABLET PO SCH (09:53)
[2021-12-14] MEDS: APIXABAN 5 MG TABLET PO SCH ×2 (09:54→16:50)
[2021-12-14] MEDS: CEFTRIAXONE 1 G in IV D5W 50 ML IV SCH (10:16)
[2021-12-14 12:00] VITALS: BP 138/68
--- NOTE | 2021-12-14 12:56 | NUR ---
RN NOTE PT RECEIVED AWAKE IN BED, ALERT AND RESPONSIVE TO STIMULI. ON O2 VIA NC @3L. TOLERATING WELL WITH I2 SAT 97. NOWAK CATH IN PLACE DRAINING WELL. PT REMAINS NPO EXCEPT MEDS. IV ACCESS ON L HAND G18 IN PLACE AND PATENT. SAFETY MEASURES MAINTAINED. WILL CONT TO MONITOR.
[2021-12-14] MEDS: IPRATROPIUM/ALBUTEROL INHALER IH SCH ×3 (13:34→20:48)
[2021-12-14 16:00] VITALS: BP 122/51
[2021-12-14] MEDS ORDERED: IV D5/0.45 NACL 1,000 ML IV ONE (18:00)
[2021-12-14] MEDS: IV D5/0.45 NACL 1,000 ML IV PRN (18:19)
--- NOTE | 2021-12-14 18:35 | NUR ---
RN NOTE PT RESTING IN BED, ALERT AND RESPONSIVE TO STIMULI. ON O2 VIA NC @3L. TOLERATING WELL WITH I2 SAT 97. NOWAK CATH IN PLACE DRAINING WELL. PT REMAINS NPO EXCEPT MEDS. IV ACCESS ON L HAND G18 IN PLACE AND PATENT WITH IVF D5 1/2 NS @75/HR.DUE MEDS GIVEN, AM/PM CARE DONE. SAFETY MEASURES MAINTAINED. WILL CONT TO MONITOR.
--- NOTE | 2021-12-14 19:35 | NUR ---
RN NOTE PT RESTING IN BED, ALERT AND RESPONSIVE TO STIMULI. ON O2 VIA NC @3L. TOLERATING WELL WITH ISAT 97. NOWAK CATH IN PLACE DRAINING WELL CLOUDY URINE. PT REMAINS NPO EXCEPT MEDS. IV ACCESS ON L HAND G18 AND LAC #20G IN PLACE AND PATENT WITH IVF D5 1/2 NS @75/HR. SAFETY MEASURES MAINTAINED. WILL CONT TO MONITOR.
[2021-12-14 20:24] VITALS: BP 127/67
[2021-12-14] MEDS: ATORVASTATIN 10 MG TABLET PO SCH (21:14)
--- NOTE | 2021-12-14 21:14 | NUR ---
RN NOTES PT ASLEEP WOKE UP PT BUT TO DROWSY TO FOLLOW COMMANDS UNSAFE TO ADMINISTER MEDICATION AT THIS TIME.
[2021-12-14] MEDS: INSULIN REGULAR, HUMAN 100 UNIT/ML 3 ML VIAL SQ PRN (23:39)
[2021-12-15 00:30] VITALS: BP 136/72
[2021-12-15] MEDS: IPRATROPIUM/ALBUTEROL INHALER IH SCH ×3 (01:46→14:49)
[2021-12-15 04:00] VITALS: BP 162/76
[2021-12-15] MEDS: BLOOD SUGAR DIAGNOSTIC 1 EACH STRIP IN SCH ×3 (05:38→17:26)
[2021-12-15] MEDS: INSULIN REGULAR, HUMAN 100 UNIT/ML 3 ML VIAL SQ PRN ×2 (05:39→17:27)
--- NOTE | 2021-12-15 06:30 | NUR ---
RN NOTE PT RESTING IN BED, ALERT AND RESPONSIVE TO STIMULI PT NOTED MUMBLING TO SELF WITH GARBLED SPEECH .ON O2 VIA NC @3L. TOLERATING WELL. NOWAK CATH IN PLACE DRAINING WELL CLOUDY URINE. PT REMAINS NPO EXCEPT MEDS. IV ACCESS ON L HAND G18 AND LAC #20G IN PLACE AND PATENT WITH IVF D5 1/2 NS @75/HR. SAFETY MEASURES MAINTAINED. WILL ENDORSE CARE TO DAY SHIFT NURSE.
[2021-12-15 07:11] LABS: BASOPHILS % (AUTO) 0.1 % (0.0-2.0); HEMATOCRIT 37 % (33-45); HEMOGLOBIN 12.6 g/dL (11.5-14.8); LYMPHOCYTES # (AUTO) 0.5 K/uL (0.8-4.8); MEAN CORPUSCULAR HGB CONC 34 g/dl (31.0-36.0); MEAN CORPUSCULAR VOLUME 93 fL (82-100); MONOCYTES # (AUTO) 0.4 K/uL (0.1-1.30); MONOCYTES % (AUTO) 5.1 % (2.0-12.0); NEUTROPHILS # (AUTO) 6.9 K/uL (1.8-8.9); NEUTROPHILS % (AUTO) 87.8 % (43.0-81.0); PLATELET COUNT (AUTO) 184 K/uL (150-450); RED BLOOD CELL COUNT(AUTO) 4.03 MIL/uL (4.0-5.2); WHITE BLOOD COUNT (AUTO) 7.9 K/uL (4.3-11.0)
--- NOTE | 2021-12-15 07:26 | NUR ---
PAN PUSHER OPENING NOTE RECEIVED PT RESTING IN BED, ALERT AND RESPONSIVE TO STIMULI. KEEP TALKING TO HERSELF SEEMS LIKE SHE IS ON THE PHONE, CAN NOT UNDERSTAND WHAT SHE IS SAYING, ON O2 VIA NC @3L. TOLERATING WELL WITH O2 SAT 97%. NOWAK CATH IN PLACE DRAINING WELL CLOUDY URINE. PT REMAINS NPO EXCEPT MEDS. IV ACCESS ON L HAND G18 AND LAC #20G IN PLACE AND PATENT WITH IVF D5 1/2 NS @75/HR. SAFETY MEASURES MAINTAINED. WILL CONT TO MONITOR.
[2021-12-15 08:00] VITALS: BP 156/73
[2021-12-15] MEDS: LEVOTHYROXINE SODIUM 50 MCG TABLET PO SCH (08:19)
[2021-12-15] MEDS: DEXAMETHASONE SOD PHOSPHATE 10 MG/ML VIAL IV SCH (08:22)
[2021-12-15] MEDS: ASPIRIN EC 81 MG TABLET.DR PO SCH (08:23)
[2021-12-15] MEDS: APIXABAN 5 MG TABLET PO SCH ×2 (08:25→16:39)
[2021-12-15] MEDS: LOSARTAN POTASSIUM 50 MG TABLET PO SCH (08:26)
[2021-12-15] MEDS: CEFTRIAXONE 1 G in IV D5W 50 ML IV SCH (08:27)
[2021-12-15 08:51] LABS: CALCIUM, SERUM 8.3 mg/dL (8.5-10.1); CARBON DIOXIDE 26 mmol/L (21-32); CHLORIDE 104 mmol/L (98-107); CREATININE 0.9 mg/dL (0.6-1.3); GLUCOSE 134 mg/dL (74-106); MAGNESIUM 2.6 mg/dL (1.8-2.4); PHOSPHORUS 2.5 mg/dL (2.5-4.9); POTASSIUM 3.9 mmol/L (3.5-5.1); SODIUM SERUM 136 mmol/L (136-145); UREA NITROGEN, BLOOD 27 mg/dL (7-18)
[2021-12-15 12:00] VITALS: BP 165/90
[2021-12-15] MEDS ORDERED: hydrALAZINE HCL IV 20 MG VIAL IV PRN (13:30)
--- NOTE | 2021-12-15 13:45 | NUR ---
CHECKED PT BP 180/112 USED DIFFERENT EXTREMITIES STILL WITH SAME READING DR LOWRY AT BEDSIDE WAS NOTIFIED WITH NEW ORDER OF HYDRALAZINE IV PRN, DOSE IS GIVEN ORDERED
--- NOTE | 2021-12-15 15:00 | NUR ---
RN NOTES: RECHECKED BP 118/60
[2021-12-15 16:00] VITALS: BP 125/55
[2021-12-15] MEDS: IV D5/0.45 NACL 1,000 ML IV PRN (19:32)
--- NOTE | 2021-12-15 19:42 | NUR ---
AUTOMATION QTP TESTER CLOSING NOTE PT RESTING IN BED, ALERT AND RESPONSIVE TO STIMULI PT NOTED MUMBLING TO SELF WITH GARBLED SPEECH .ON O2 VIA NC @3L. TOLERATING WELL. NOWAK CATH IN PLACE DRAINING WELL CLOUDY URINE. PT REMAINS NPO EXCEPT MEDS. IV ACCESS ON L HAND G18 AND LAC #20G IN PLACE AND PATENT WITH IVF D5 1/2 NS @75/HR. SAFETY MEASURES MAINTAINED. WILL ENDORSE CARE TO WINDOWS SECURITY ENGINEER NURSE.
[2021-12-15 20:00] VITALS: BP 147/89
--- NOTE | 2021-12-15 20:00 | NUR ---
DISPOSAL PLANT OPERATOR NOTE PT IN BED AWAKE. MUMBLING. NO SOB, NO DISTRESS OR DISCOMFORT NOTED. NO S/S OF PAIN NOTED. ON TELE SR WITH PAC HR 85. ON O2 3L VIA N/C, O2 SAT 98%. F/C INTACT AND PATENT DRAINING YELLOWISH COLOR URINE. PT IS NPO EXCEPT MEDS. IVF D5 1/2 NS INFUSING AT 75 ML/HR AT RAC #20, NO S/S OF INFILTRATION NOTED. SL LT HAND #18 G INTACT AND PATENT. KEPT HER DRY AND CLEAN. REPOSITION HER FOR COMFORT AND SKIN MANAGEMENT. ALL NEEDS ATTENDED. VSS CONTINUE TO MONITOR HER.
[2021-12-15] MEDS: ATORVASTATIN 10 MG TABLET PO SCH (21:50)
[2021-12-16] VITALS: BP 135/85
[2021-12-16] MEDS: IPRATROPIUM/ALBUTEROL INHALER IH SCH ×4 (00:22→12:55)
[2021-12-16] MEDS: BLOOD SUGAR DIAGNOSTIC 1 EACH STRIP IN SCH ×4 (00:22→17:42)
[2021-12-16 04:00] VITALS: BP 145/74
--- NOTE | 2021-12-16 06:36 | NUR ---
AUTOMATED CUTTING MACHINE OPERATOR NOTE PT IN BED ASLEEP, NO DISTRESS OR DISCOMFORT NOTED. ON TELE SR 61. IVF D5 1/2 NS INFUSING WELL AT 75 ML/HR, NO S/S OF INFILTRATION NOTED. KEPT HER DRY AND CLEAN. F/C INTACT AND PATENT DRAINING YELLOWISH COLOR URINE. SIDE RAILS UP X 2 AND CALL LIGHT WITHIN REACH. WILL ENDORSE TO DAY SHIFT NURSE FOR CONTINUE TO CARE.
[2021-12-16 07:11] LABS: HEMATOCRIT 36 % (33-45); HEMOGLOBIN 12.2 g/dL (11.5-14.8); LYMPHOCYTES # (AUTO) 0.7 K/uL (0.8-4.8); LYMPHOCYTES % (AUTO) 8.7 % (20.0-44.0); MEAN CORPUSCULAR HGB CONC 34 g/dl (31.0-36.0); MEAN CORPUSCULAR VOLUME 93 fL (82-100); MONOCYTES # (AUTO) 0.4 K/uL (0.1-1.30); MONOCYTES % (AUTO) 5.4 % (2.0-12.0); NEUTROPHILS # (AUTO) 6.5 K/uL (1.8-8.9); NEUTROPHILS % (AUTO) 85.9 % (43.0-81.0); PLATELET COUNT (AUTO) 186 K/uL (150-450); RED BLOOD CELL COUNT(AUTO) 3.91 MIL/uL (4.0-5.2); WHITE BLOOD COUNT (AUTO) 7.6 K/uL (4.3-11.0)
--- NOTE | 2021-12-16 07:20 | NUR ---
RN/TELE NOTE PATIENT RESTING COMFORTABLY ON BED A&OX3. ALL VSS. PATIENT SATTING AT 96% ON3L NC. VOIDING VIA NOWAK CATHETER PATENT AND DRAINING BELOW THE BLADDER. DIET NPO EXCEPT MEDS. IV L HAND #18G RAC #20 RUNNING D5W 1/2 NS @75MLS/HR. ALL SAFETY FALL PRECAUTIONS IN PLACE BED LOCK ON, BED ALARM ON, SIDE RAILS UP, BED IN LOWEST POSITION, CALL LIGHT WITHIN REACH. WILL CONTINUE TO MONITOR.
[2021-12-16 07:52] LABS: CALCIUM, SERUM 8.2 mg/dL (8.5-10.1); CARBON DIOXIDE 24 mmol/L (21-32); CHLORIDE 103 mmol/L (98-107); GLUCOSE 116 mg/dL (74-106); MAGNESIUM 2.4 mg/dL (1.8-2.4); PHOSPHORUS 2.2 mg/dL (2.5-4.9); POTASSIUM 3.6 mmol/L (3.5-5.1); SODIUM SERUM 136 mmol/L (136-145); UREA NITROGEN, BLOOD 26 mg/dL (7-18)
[2021-12-16 08:00] VITALS: BP 158/95
[2021-12-16] MEDS: LEVOTHYROXINE SODIUM 50 MCG TABLET PO SCH (08:56)
[2021-12-16] MEDS: LOSARTAN POTASSIUM 50 MG TABLET PO SCH (08:57)
[2021-12-16] MEDS: ASPIRIN EC 81 MG TABLET.DR PO SCH (08:57)
[2021-12-16] MEDS: APIXABAN 5 MG TABLET PO SCH ×2 (08:58→17:42)
[2021-12-16] MEDS: DEXAMETHASONE SOD PHOSPHATE 10 MG/ML VIAL IV SCH (08:59)
[2021-12-16] MEDS: CEFTRIAXONE 1 G in IV D5W 50 ML IV SCH (08:59)
[2021-12-16] MEDS ORDERED: Sodium Phosphate 30 MMOL in IV NS 0.9% 250 ML IV SCH (11:00)
[2021-12-16 12:00] VITALS: BP 156/59
[2021-12-16 16:00] VITALS: BP 147/70
[2021-12-16] MEDS ORDERED: LOSA25TA27 PO (16:03)
[2021-12-16] MEDS ORDERED: DEXA6TAB PO (16:03)
--- NOTE | 2021-12-16 18:53 | NUR ---
RN NOTE DISCHARGE WAS COMPLETED PATIENT INFORMATION IN FOLDER. PATIENT STABLE FOR TRANSFER.
--- NOTE | 2021-12-16 19:57 | NUR ---
CABLE MOCK UP ASSEMBLER NOTE AMBULANCE ARRIVED TO TAKE THE PT TO HOME, PT WILL BE ON HOSPICE PER DAY SHIFT NURSE. DC THE SL LOCKS IN RAC AND LT HAND, SECURED THE SITE WITH 2X2 GAUZE NO BLEEDING NOTED. KEPT HER DRY AND CLEAN. ALSO DC'D NOWAK CATH. PT IN NO DISTRESS OF DISCOMFORT NOTE. VSS. DISCHARGE PAPER DONE BY DAY SHIFT NURSE.
--- NOTE | 2021-12-16 20:04 | NUR ---
TUNNEL INSPECTOR NOTE [facility] ALSO INFORMED THAT PT IS READY TO GO TO HOME VIA AMBULANCE. ACCORDING TO THEM NURSE WILL SEE THE PT AT HOME ONCE PT ARRIVES.
== END 2021-12-16 21:31 | disposition hospice, home (50) | DRG 871 ==
LOC: ER 00:29 → TELE-TD 03:55 → TELE1 12-14 09:08
PROVIDERS: ADMIT Student in an Organized Health Care Education/Training Program; ATTEND Student in an Organized Health Care Education/Training Program
DX: A41.89 Other specified sepsis (principal); G93.41 Metabolic encephalopathy; I21.A1 Myocardial infarction type 2; J12.82 Pneumonia due to coronavirus disease 2019; U07.1 COVID-19; J96.01 Acute respiratory failure with hypoxia; N39.0 Urinary tract infection, site not specified; E44.0 Moderate protein-calorie malnutrition; E87.1 Hypo-osmolality and hyponatremia; N17.9 Acute kidney failure, unspecified; E86.0 Dehydration; K21.9 Gastro-esophageal reflux disease without esophagitis; F02.80 Dementia in other diseases classified elsewhere, unspecified severity, without behavioral disturbance, psychotic disturbance, mood disturbance, and anxiety; F31.9 Bipolar disorder, unspecified; G30.9 Alzheimer's disease, unspecified; E78.5 Hyperlipidemia, unspecified; E03.9 Hypothyroidism, unspecified; K59.09 Other constipation; Z96.652 Presence of left artificial knee joint; Z96.642 Presence of left artificial hip joint; Z79.82 Long term (current) use of aspirin; Z79.899 Other long term (current) drug therapy; F09 Unspecified mental disorder due to known physiological condition; E88.09 Other disorders of plasma-protein metabolism, not elsewhere classified; B96.20 Unspecified Escherichia coli [E. coli] as the cause of diseases classified elsewhere; D64.9 Anemia, unspecified; I10 Essential (primary) hypertension; L89.156 Pressure-induced deep tissue damage of sacral region; Z79.01 Long term (current) use of anticoagulants; Z79.890 Hormone replacement therapy
CPT/HCPCS: 36415; 36600; 71045-TC; 80048-TC; 80053-TC; 80076-TC; 81001; 82803-TC; 82962-TC; 83605-TC; 83735-TC; 83880; 84100-TC; 84484-TC; 85025-TC; 85378-TC; 85730-TC; 86140-TC; 87040-TC; 87081-TC; 87086-TC; 87186-TC; 92526; 92611-TC; 93307-TC; 93970-TC; 94799-TC; A9563; C9803; G0378; J0360; J0696; J1100; J1650; J1815; J1940; J2543; J3370; J3490; J7030; J7042; J7050; J7060